=== PATIENT | male | born 1980 | race Asian ===

== ENCOUNTER → 2024-11-16 07:57 | Outpatient (REF) | payer OTHER, SELFPAY | LOC: WOUND 07:57 | PROVIDERS: ATTENDING PHYSICIAN Surgery; FAMILY PHYSICIAN Family Medicine | DX: L97.822 Non-pressure chronic ulcer of other part of left lower leg with fat layer exposed (principal); Z89.512 Acquired absence of left leg below knee | CPT/HCPCS: 11043; 99204 ==

== ENCOUNTER → 2024-11-24 08:16 | Outpatient (REF) | payer OTHER, SELFPAY | LOC: WOUND 08:16 | PROVIDERS: ATTENDING PHYSICIAN Surgery; FAMILY PHYSICIAN Family Medicine | DX: L97.822 Non-pressure chronic ulcer of other part of left lower leg with fat layer exposed (principal); Z89.512 Acquired absence of left leg below knee | CPT/HCPCS: 11042 ==

== ENCOUNTER → 2024-12-14 09:06 | Outpatient (REF) | payer OTHER, SELFPAY | LOC: WOUND 09:06 | PROVIDERS: ATTENDING PHYSICIAN Surgery | DX: L97.822 Non-pressure chronic ulcer of other part of left lower leg with fat layer exposed (principal); Z89.512 Acquired absence of left leg below knee | CPT/HCPCS: 11042 ==

== ENCOUNTER → 2024-12-22 09:25 | Outpatient (REF) | payer OTHER, SELFPAY | LOC: WOUND 09:25 | PROVIDERS: ATTENDING PHYSICIAN Surgery; FAMILY PHYSICIAN Family Medicine | DX: L97.822 Non-pressure chronic ulcer of other part of left lower leg with fat layer exposed (principal); Z89.512 Acquired absence of left leg below knee | CPT/HCPCS: 11042 ==

== ENCOUNTER → 2024-12-29 09:24 | Outpatient (REF) | payer OTHER, SELFPAY | LOC: WOUND 09:24 | PROVIDERS: ATTENDING PHYSICIAN Surgery | DX: L97.822 Non-pressure chronic ulcer of other part of left lower leg with fat layer exposed (principal); Z89.512 Acquired absence of left leg below knee | CPT/HCPCS: 99212 ==